=== PATIENT | male | born 1995 | race Two or more races ===

== ENCOUNTER 2024-10-31 11:28 | Day surgery (SDC) | payer SELFPAY ==
[2024-10-31] MEDS ORDERED: Midazolam 1 MG/ML 2 ML SDV ONE (11:52)
[2024-10-31] MEDS ORDERED: Propofol 200 MG/20 ML SDV ONE (11:52)
[2024-10-31] MEDS ORDERED: fentaNYL 100 MCG/2 ML SDV ONE (11:52)
[2024-10-31] MEDS ORDERED: Lidocaine 2% 5 ML SDV ONE (11:52)
[2024-10-31] MEDS ORDERED: Ondansetron 4 MG/2 ML SDV ONE (11:53)
[2024-10-31] MEDS ORDERED: ceFAZolin 1 GM Vial ONE (11:57)
[2024-10-31] MEDS ORDERED: Bupivacaine 0.5% 30 ML SDV ONE (11:57)
[2024-10-31] MEDS: Lactated Ringers 1,000 ML IV SCH (12:01)
[2024-10-31] MEDS ORDERED: cefOXitin 1 GM Vial ONE (12:22)
[2024-10-31] MEDS ORDERED: HYDROmorphone 1 MG/ML Syringe ONE (12:31)
== END 2024-10-31 14:15 | disposition home or self-care (01) ==
LOC: MW.SDS 11:28
PROVIDERS: ATTEND Surgery
DX: K61.0 Anal abscess (principal); F17.210 Nicotine dependence, cigarettes, uncomplicated
CPT/HCPCS: 46050; J0665; J0694; J1171; J2003; J2250; J2405; J2704; J3010; J7120; J0690

== ENCOUNTER 2024-11-26 06:52 | Emergency (ER) | payer SELFPAY ==
[2024-11-26] MEDS ORDERED: Famotidine 40 MG/5 ML Bottle PO ONE (07:14)
[2024-11-26] MEDS ORDERED: Famotidine 40 MG/5 ML Bottle PO STA (07:20)
[2024-11-26] MEDS: diphenhydrAMINE 50 MG Cap PO ONE (07:24)
[2024-11-26] MEDS: predniSONE 20 MG Tab PO ONE (07:25)
[2024-11-26] MEDS: Famotidine 20 MG Tab PO STA (07:26)
[2024-11-26] MEDS ORDERED: Famotidine 20 MG Tab PO ONE ×2 (07:30)
== END 2024-11-26 07:54 | disposition home or self-care (01) ==
LOC: MW.ED 06:52
DX: L50.0 Allergic urticaria (principal); E66.9 Obesity, unspecified; Z68.41 Body mass index [BMI] 40.0-44.9, adult
CPT/HCPCS: 99283; A9270